=== PATIENT | male | born 1985 | race African-American/Black ===

== ENCOUNTER 2020-09-25 06:33 | Emergency (ER) | payer MEDICAID ==
[~2020-09-25] VITALS: Ht 167.6 cm; Wt 104.0 kg
[2020-09-25] MEDS ORDERED: ACETAMINOPHEN 325MG TABLET PO ONE (08:15)
[2020-09-25] MEDS ORDERED: LIDOCAINE HCL 1% 20ML VIAL (Pyxis) INJ INFIL ONE (08:15)
[2020-09-25] MEDS ORDERED: TETANUS, DIPHTHERIA, PERTUSSIS VAC/PF 0.5ML (>7YR OLD) IM ONE (09:15)
[2020-09-25] MEDS ORDERED: BACITRACIN ZINC OINT UDPKT TOP ONE (09:45)
[2020-09-25] MEDS ORDERED: IBUP-2029 PO (11:57)
[2020-09-25 12:02] VITALS: BP 142/99
== END 2020-09-25 12:45 | disposition home or self-care (01) ==
LOC: ER 06:33
DX: S01.81XA Laceration without foreign body of other part of head, initial encounter (principal); Y08.89XA Assault by other specified means, initial encounter; Y93.89 Activity, other specified; Y92.89 Other specified places as the place of occurrence of the external cause; Y99.8 Other external cause status
CPT/HCPCS: 12002; 70450; 90471; 90715; 99284; J3490

== ENCOUNTER 2020-09-29 09:32 | Emergency (ER) | payer MEDICAID ==
[~2020-09-29] VITALS: Ht 165.1 cm; Wt 100.0 kg
[~2020-09-29 09:32] MED LIST: IBUP-2029 PO
[2020-09-29 09:41] VITALS: BP 153/88
== END 2020-09-29 10:10 | disposition home or self-care (01) ==
LOC: ER 09:32
DX: Z48.00 Encounter for change or removal of nonsurgical wound dressing (principal)
CPT/HCPCS: 99281

== ENCOUNTER 2020-10-06 09:30 | Emergency (ER) | payer MEDICAID ==
[~2020-10-06] VITALS: Ht 165.1 cm; Wt 92.0 kg
[2020-10-06 09:40] VITALS: BP 156/93
== END 2020-10-06 10:10 | disposition home or self-care (01) ==
LOC: ER 09:30
DX: Z48.02 Encounter for removal of sutures (principal)
CPT/HCPCS: 99281; Z7610